=== PATIENT | male | born 1965 | race Caucasian/White ===

== ENCOUNTER 2017-01-07 15:02 | Emergency (ER) | payer MEDICARE, OTHER ==
[2017-01-07 15:21] VITALS: BP 169/100
--- NOTE | 2017-01-07 15:46 | ERNOTE ---
Abdominal HPI - Narrative Date of Service: 01/07/17 - General Chief Complaint: Abdominal Pain Time Seen by Provider: 01/07/17 15:24 Source: patient Exam Limitations: no limitations - Immun/Allergies/Home Medications Immunizatons: IMMUNIZATION HX Immunizations Up to Date Yes History of Influenza Vaccine No Hx Pneumococcal Vaccination No Allergies/Adverse Reactions: Allergies No Known Drug Allergies Allergy (Verified 01/07/17 15:21) Home Medications: HOME MEDICATIONS Albuterol Sulfate [Proventil Hfa] 2 puff IH Q4H PRN 06/06/12 [Last Taken Unknown ] Atorvastatin Calcium [Lipitor] 20 mg PO HS 06/14/13 [Last Taken Unknown] Dicyclomine HCl [Bentyl] 10 - 20 mg PO TID #60 tab 01/07/17 [Last Taken Unknown] Hydrochlorothiazide 01/07/17 [Last Taken Unknown] Lisinopril 01/07/17 [Last Taken Unknown] Ondansetron [Zofran Odt] 4 mg PO Q6H PRN #20 tab 01/07/17 [Last Taken Unknown] traMADol HCL [Tramadol HCl] 50 mg PO BID PRN 01/07/17 [Last Taken Unknown] - History of Present Illness Narrative: Pt. comes in with c/o LLQ pain for 2 days that is accompanied by nausea. Pt. states that he did have some diarrhea two days ago but that has resolved at this time. Pt. denies any SOB, CP, vomiting, fever, recent injury. Pt. states that he went to [facility] prior to arrival without relief of symptoms. Pt. denies any alleviating factors or aggravating factors. Review of Systems - Review of Systems Constitutional: Present: no symptoms reported. Absent: recent illness, fever, chills, weakness, fatigue, malaise EYE: Present: no symptoms reported. Absent: eye pain, double vision Respiratory: Present: no symptoms reported. Absent: shortness of breath, cough , wheezing Cardiology: Present: no symptoms reported. Absent: chest pain, edema Gastrointestinal/Abdominal: Present: nausea, abdominal pain. Absent: vomiting, diarrhea Genitourinary: Present: no symptoms reported Musculoskeletal: Present: no symptoms reported. Absent: back pain, joint pain Skin: Present: no symptoms reported Neurological: Present: no symptoms reported. Absent: headache, dizziness/light- headedness, weakness, numbness, tingling All Other Systems: All systems neg except as marked - Patient's Past Medical History Patient History - Medical: No pertinent hx Patient History - Cardiac/Respiratory: Asthma, Hypertension, CPAP/BiPAP Home Use , Sleep Apnea Patient History - Cancer: No Hx of Cancer Patient History - Surgical Procedures: Orthopedic Patient History - Other: None - Social History Living Situations: home Psych History: No pertinent hx Smoking Status: Former smoker - Immunizations Immunizations Up to Date: Yes Hx Pneumococcal Vaccination: No History of Influenza Vaccine: No Physical Exam - Physical Exam General Appearance: Present: wd/wn, alert, no apparent distress Head Exam: Present: normal inspection, no evidence of injury Eye Exam: Normal inspection: bilateral Ears, Nose, Throat: Present: normal ENT inspection, normal pharynx Neck: Present: normal inspection, nontender. Absent: lymphadenopathy (R), lymphadenopathy (L) Respiratory: Present: no respiratory distress, normal breath sounds, no accessory muscle use, chest nontender, lungs clear Cardiovascular/Chest: Present: regular rate, rhythm, no murmur, normal peripheral pulses Gastrointestinal/Abdominal: Present: normal bowel sounds, nondistended, soft, no organomegaly, tenderness - LLQ. Absent: rebound Back Exam: Present: normal inspection, normal range of motion, no CVA tenderness , no vertebral tenderness Extremity Exam: Present: normal inspection, non-tender, normal range of motion, no edema Neurological Exam: Present: alert, oriented, normal mood/affect, no motor/ sensory deficits Skin Exam: Present: normal color, warm/dry. Absent: pallor, skin rash ED Progress - Date and Time Seen: Date and Time: 01/07/17 17:36 Reveiwed labs and xray from [facility] and pt. has negative results So feel taht this is likely colitis and gastroenteritis. - Results and Orders Patient's Lab Results:: I have reviewed the patient's lab results. - Vital Signs Patient's Vital Signs:: I have reviewed the patient's vital signs. Vital Signs: Vital Signs 01/07/17 15:16 Temperature 36.8 C Pulse Rate 71 Respiratory 15 Rate Blood Pressure 169/100 O2 Sat by Pulse 98 Oximetry - Progress/Reassessment Chief Complaint: Abdominal Pain Departure Clinical Impression: Gastroenteritis and colitis, viral - Departure Disposition: Home self-care Condition: Good Instructions: Colitis, Viral Gastroenteritis, Adult, [id number] Additional Instructions: Please follow up with primary provider in 1-2 days if no improvement Referrals: Jalyn Red CNP [Primary Care Provider] - Prescriptions: Dicyclomine HCl [Bentyl] 10 - 20 mg PO TID #60 tab Ondansetron [Zofran Odt] 4 mg PO Q6H PRN #20 tab PRN Reason: Nausea
[2017-01-07 15:54] LABS: Urine Appearance Clear; Urine Bilirubin Negative (NEGATIVE); Urine Color Yellow
[2017-01-07 15:55] LABS: Urine Bacteria None Seen; Urine Blood Negative /ul (NEGATIVE); Urine Ketone Negative (NEGATIVE); Urine Nitrite Negative (NEGATIVE); Urine Protein Negative (NEGATIVE); Urine RBC None Seen /hpf (0-5); Urine Specific Gravity 1.025 SP.GR. (1.005-1.030); Urine Urobilinogen Normal (NORMAL); Urine WBC None Seen /hpf (0-5)
[2017-01-07] MEDS ORDERED: DICYCLOMINE HCL 10 MG/ML AMPUL IM ONE ×2 (17:36→17:43)
== END 2017-01-07 17:50 | disposition home or self-care (01) ==
LOC: ER 15:02
DX: A08.4 Viral intestinal infection, unspecified (principal); K52.9 Noninfective gastroenteritis and colitis, unspecified